=== PATIENT | female | born 1990 | race Caucasian/White ===

== ENCOUNTER 2019-01-25 12:48 | Inpatient (IN) | payer OTHER ==
[~2019-01-25] VITALS: Ht 144.8 cm; Wt 69.5 kg
[~2019-01-25 12:48] MED LIST: PRENAT PO
[2019-01-25] MEDS ORDERED: LACTATED RINGER'S 1,000 ML IV PRN (15:28)
[2019-01-25] MEDS ORDERED: DEXTROSE 5%-LR 1,000 ML IV SCH (15:28)
[2019-01-25] MEDS ORDERED: CARBOPROST 250 MCG INJ IM PRN (15:30)
[2019-01-25] MEDS ORDERED: MISOPROSTOL 200 MCG TAB PR PRN (15:30)
[2019-01-25] MEDS ORDERED: BUTORPHANOL 2 MG INJ IV PRN ×2 (15:30)
[2019-01-25] MEDS ORDERED: NA PHOSPHATE/BIPHOS 133 ML ENEMA PR ONE (15:30)
[2019-01-25] MEDS ORDERED: METHYLERGONOVINE 0.2 MG INJ IM PRN (15:30)
[2019-01-25] MEDS ORDERED: LIDOCAINE 1% (MPF) 30 ML INJ INJ PRN (15:30)
[2019-01-25] MEDS ORDERED: IBUPROFEN 600 MG TAB PO PRN (15:30)
[2019-01-25] MEDS ORDERED: OXYTOCIN 30 UNITS/LR 500 ML IV PRN (15:30)
[2019-01-25] MEDS ORDERED: OXYTOCIN 30 UNITS/LR 500 ML IV SCH ×2 (15:30)
[2019-01-25] MEDS: LACTATED RINGER'S 1,000 ML IV SCH ×2 (15:44→20:49)
[2019-01-25 15:58] VITALS: Ht 144.8 cm; Wt 69.5 kg
[2019-01-25 16:02] VITALS: BP 122/71; PULSE 71; RESP 20
[2019-01-25] MEDS: MISOPROSTOL 50 MCG CAPSULE PO SCH (20:41)
[2019-01-25] MEDS ORDERED: MISOPROSTOL 50 MCG CAPSULE PO SCH (21:00)
[2019-01-26] MEDS: MISOPROSTOL 50 MCG CAPSULE PO SCH ×4 (00:54→18:00)
[2019-01-26] MEDS: LACTATED RINGER'S 1,000 ML IV SCH (05:01)
[2019-01-26] MEDS ORDERED: OXYTOCIN 30 UNITS/LR 500 ML IV SCH ×2 (07:00→12:24)
[2019-01-26] MEDS ORDERED: CARBOPROST 250 MCG INJ IM PRN (12:30)
[2019-01-26] MEDS ORDERED: OXYCODONE/ACETAMINOPHEN (5/325) TAB PO PRN (12:30)
[2019-01-26] MEDS ORDERED: METHYLERGONOVINE 0.2 MG INJ IM PRN (12:30)
[2019-01-26] MEDS ORDERED: MISOPROSTOL 200 MCG TAB PR PRN (12:30)
[2019-01-26] MEDS ORDERED: NACL 0.9% 3 ML SYG IV SCH (12:30)
[2019-01-26] MEDS ORDERED: OXYTOCIN 30 UNITS/LR 500 ML IV PRN (12:30)
[2019-01-26 16:12] VITALS: BP 117/80; PULSE 70; RESP 18
[2019-01-26 18:00] VITALS: BP 115/72; PULSE 77; RESP 18
[2019-01-26] MEDS: IBUPROFEN 600 MG TAB PO SCH (18:00)
[2019-01-26 20:10] VITALS: BP 125/75; PULSE 85; RESP 18
[2019-01-26] MEDS ORDERED: BENZOCAINE 20% 56 ML SPRAY TOP PRN (22:00)
[2019-01-26] MEDS ORDERED: WITCH HAZEL/GLYCERIN PAD PR PRN (22:00)
[2019-01-26] MEDS: LANOLIN HPA 1 PKT TOP PRN (22:17)
[2019-01-26] MEDS ORDERED: DIPHTH/TET/ACEL PERTUSS (ADULT) 0.5 ML VIAL IM* ONE (22:30)
[2019-01-27] VITALS: BP 119/70; PULSE 78; RESP 18
[2019-01-27] MEDS: IBUPROFEN 600 MG TAB PO SCH ×5 (00:40→23:38)
[2019-01-27 04:23] VITALS: BP 105/62; PULSE 66; RESP 19
[2019-01-27 08:00] VITALS: BP 105/61; PULSE 67; RESP 18
[2019-01-27 18:04] VITALS: BP 114/76; PULSE 75; RESP 18
[2019-01-27 20:00] VITALS: BP 104/68; PULSE 76; RESP 18
[2019-01-27] MEDS: LANOLIN HPA 1 PKT TOP PRN (20:03)
[2019-01-28 04:09] VITALS: BP 95/51; PULSE 66; RESP 17
[2019-01-28] MEDS: IBUPROFEN 600 MG TAB PO SCH ×2 (05:33→12:05)
[2019-01-28 08:00] VITALS: BP 109/68; PULSE 73; RESP 16; RESP 18
[2019-01-28] MEDS ORDERED: DIPHTH/TET/ACEL PERTUSS (ADULT) 0.5 ML VIAL IM* ONE (09:00)
== END 2019-01-28 16:04 | disposition home or self-care (01) | DRG 807 ==
LOC: L-D 12:48 → PP1 01-26 18:02
PROVIDERS: ADMIT Obstetrics & Gynecology; ATTEND Obstetrics & Gynecology
PROC: 10E0XZZ Delivery of Products of Conception, External Approach (ICD-10-PCS; principal; 2019-01-26)
PROC: 0KQM0ZZ Repair Perineum Muscle, Open Approach (ICD-10-PCS; 2019-01-26)
DX: O48.0 Post-term pregnancy (principal); Z37.0 Single live birth; O70.1 Second degree perineal laceration during delivery; O69.81X0 Labor and delivery complicated by cord around neck, without compression, not applicable or unspecified; Z3A.40 40 weeks gestation of pregnancy
CPT/HCPCS: 76815; 85025; 85610; 85730; 86592; 86762; 86900; 86901; 87340; J2590; J7120; J7121